=== PATIENT | female | born 1970 ===

== ENCOUNTER 2017-01-30 09:02 | Emergency (ER) | payer BC ==
[2017-01-30 09:11] VITALS: BP 132/84; PULSE 98; TEMP 100; O2SAT 96
[2017-01-30 09:12] VITALS: BMI 34.9
[2017-01-30] MEDS ORDERED: Sodium Chloride 0.9% 1,000 ML IV STA (09:43)
--- NOTE | 2017-01-30 10:08 | ED PDOC ---
HPI: General Adult Time Seen by Provider: 01/30/17 09:25 Chief Complaint (Nursing): Female Genitourinary Chief Complaint (Provider): Female Genitourinary History Per: Patient History/Exam Limitations: no limitations Onset/Duration Of Symptoms: Days (x 2) Current Symptoms Are (Timing): Still Present Additional Complaint(s): Adelia is a 47 year old female who presents to the Emergency Department complaining of burning in her private area and right lower quadrant pain. Patient states she was here last week for sore throat and fever and was given antibiotics. She states that her sore throat has resolved, but still has burning in her private area. She states she was recently at the clinic, but did not check out her but gave her Flagyl. Currently taking Macrobid for UTI, Motrin , and other medication. Denies vaginal discharge, vaginal bleeding, States burning sensation and fever continues. PMD: No Provider Past Medical History Reviewed: Historical Data, Nursing Documentation, Vital Signs Vital Signs: Last Vital Signs Temp 100 F H 01/30/17 09:11 Pulse 98 H 01/30/17 09:11 Resp BP 132/84 01/30/17 09:11 Pulse Ox 96 01/30/17 15:34 - Medical History PMH: Diabetes (borderline) - Surgical History Surgical History: No Surg Hx - Family History Family History: States: Unknown Family Hx - Social History Current smoker - smoking cessation education provided: No Drugs: Denies - Home Medications Home Medications: Ambulatory Orders Medication Instructions Recorded Lactulose 10 gm PO TID 4 Days ml 08/22/14 Ibuprofen [Motrin Tab] 800 mg PO Q6 PRN #30 tab 01/23/17 Miconazole Nitrate [Monistat 3] 1 each VG DAILY #1 kit 01/30/17 - Allergies Allergies/Adverse Reactions: Allergies Allergy/AdvReac Type Severity Reaction Status Date / Time No Known Allergies Allergy Verified 08/22/14 00:59 Review of Systems ROS Statement: Except As Marked, All Systems Reviewed And Found Negative Constitutional: Positive for: Fever Gastrointestinal: Positive for: Abdominal Pain (Right Lower Quadrant) Genitourinary Female: Positive for: Pelvic Pain (Burning). Negative for: Vaginal Discharge, Vaginal Bleeding Physical Exam - Reviewed Nursing Documentation Reviewed: Yes Vital Signs Reviewed: Yes - Physical Exam Appears: Positive for: Non-toxic. Negative for: No Acute Distress Head Exam: Positive for: ATRAUMATIC, NORMAL INSPECTION, NORMOCEPHALIC Skin: Positive for: Normal Color, Warm, Dry Eye Exam: Positive for: Normal appearance Cardiovascular/Chest: Positive for: Regular Rate, Rhythm Respiratory: Positive for: Normal Breath Sounds. Negative for: Respiratory Distress Gastrointestinal/Abdominal: Positive for: Bowel Sounds, Soft, Tenderness (Mild Right Lower Quadrant). Negative for: Guarding, Rebound Back: Positive for: Normal Inspection Neurologic/Psych: Positive for: Alert, Oriented - Laboratory Results Result Diagrams: 01/30/17 10:23 01/30/17 10:23 - ECG O2 Sat by Pulse Oximetry: 96 (RA) Pulse Ox Interpretation: Normal Medical Decision Making Medical Decision Making: Time: 09:41 Initial Impression: Fever and Abdominal Pain Initial Plan: - CT Abdominal and Pelvis with IV Contrast - CMP - CBC - Chlamydia/GC RNA, TMA - Sodium Chloride 0.9% 1,000 ml IV 1,000 mls/hr - Blood Culture - Urine Culture - Influenza A B - Urinalysis Time: 10:13 Pelvic Exam - Thick white discharge in vault (vaginal in vault), no lesions, no CMT, no bleeding Time: 12:37 - Pelvis/Transvaginal Ultrasound Time: 12:24 CT Abdominal and Pelvis FINDINGS: LOWER THORAX: Unremarkable. LIVER: S Hepatic steatosis. No focal masses. No intrahepatic bile duct dilatation or perihepatic ascites. GALLBLADDER AND BILE DUCTS: Cholelithiasis without CT evidence of acute cholecystitis. PANCREAS: Unremarkable. No gross lesion or ductal dilatation. SPLEEN: Unremarkable. ADRENALS: Unremarkable. No mass. KIDNEYS AND URETERS: Unremarkable. No hydronephrosis. No solid mass. VASCULATURE: Unremarkable. No aortic aneurysm. BOWEL: Unremarkable. No obstruction. No gross mural thickening. APPENDIX: Normal appendix. PERITONEUM: Unremarkable. No free fluid. No free air. LYMPH NODES: Unremarkable. No enlarged lymph nodes. BLADDER: Unremarkable. REPRODUCTIVE: Unremarkable. BONES: No acute fracture. OTHER FINDINGS: None. IMPRESSION: No acute findings related to/accounting for the clinical presentation. No significant interval change compared to the prior examination(s). Time: 14:34 Pelvis Ultrasound FINDINGS: UTERUS: Measures 11.6 x 4.1 x 5.3 cm. Uterus is enlarged and anteverted with a bulbous appearing upper and mid fundus identified. The uterine myometrium is heterogeneous in overall echotexture and echogenicity however, no fibroid or other mass lesion is appreciable. ENDOMETRIUM: Measures 3.0 mm in diameter. Unremarkable. CERVIX: No cervical abnormality identified. RIGHT OVARY: Measures 2.1 x 1.7 x 1.9 cm. No solid mass. Normal flow. LEFT OVARY: Measures 2.7 x 1.7 x 3.1 cm. No solid mass. Normal flow. A simple avascular cyst identified in the left ovary measuring 2.0 x 1.2 x 2.2 cm. FREE FLUID: No significant free fluid noted. OTHER FINDINGS: None. IMPRESSION: 1. 2.2 cm simple cyst left ovary. Left adnexal compartment otherwise unremarkable. Unremarkable right adnexal compartment. 2. Enlarged, bulbous appearing uterus is identified however no focal mass is appreciable including the endometrium. No cervical pathology grossly evident. Scribe Attestation: Documented by Tahir Asher, acting as a scribe for Shante Morocho MD Provider Scribe Attestation: All medical record entries made by the Scribe were at my direction and personally dictated by me. I have reviewed the chart and agree that the record accurately reflects my personal performance of the history, physical exam, medical decision making, and the department course for this patient. I have also personally directed, reviewed, and agree with the discharge instructions and disposition. Disposition - Clinical Impression Clinical Impression: Vaginitis - Disposition Disposition: Routine/Home Disposition Time: 14:56 Condition: STABLE Additional Instructions: FOLLOW-UP WITH [facility] FOR REEVALUATION. Prescriptions: Miconazole Nitrate [Monistat 3] 1 each VG DAILY #1 kit Instructions: Vaginitis (ED) Forms: [employer] (Greek) Print Language: SURINAMESE
[2017-01-30 10:26] LABS: BASO % 0.3 % (0.0-2.0); EOS # 0.6 K/uL (0.0-0.7); EOS % 5.7 % (0.0-4.0); HEMATOCRIT 37.9 % (34.0-47.0); LYMPH # 0.7 K/uL (1.0-4.3); LYMPH % 6.7 % (20.0-40.0); MEAN CELL VOLUME 86.7 fl (81.0-99.0); MEAN CORPUSCULAR HEMOGLOBIN 29.3 pg (27.0-31.0); MEAN CORPUSCULAR HGB CONC 33.8 g/dL (33.0-37.0); MEAN PLATELET VOLUME 8.4 fl (7.2-11.7); MONO # 0.5 K/uL (0.0-0.8); MONO % 4.3 % (0.0-10.0); NEUT # 8.8 K/uL (1.8-7.0); PLATELET COUNT 296 K/uL (130-400); RED CELL DISTRIBUTION WIDTH 14.4 % (11.5-14.5); WHITE BLOOD COUNT 10.6 K/uL (4.8-10.8)
[2017-01-30 10:41] LABS: ALKALINE PHOSPHATASE 146 U/L (38-126); ALT/SGPT 45 U/L (9-52); AST/SGOT 45 U/L (14-36); BILIRUBIN,TOTAL 0.4 mg/dl (0.2-1.3); BLOOD UREA NITROGEN 9 mg/dl (7-17); CALCIUM 8.8 mg/dL (8.4-10.2); CARBON DIOXIDE 24 mmol/L (22-30); CHLORIDE 105 mmol/L (98-107); GFR AFRICAN-AMERICAN > 60; GLUCOSE,RANDOM 103 mg/dL (65-105); POTASSIUM 3.2 MMOL/L (3.6-5.0); SODIUM 138 mmol/l (132-148); TOTAL PROTEIN 7.7 G/DL (6.3-8.2)
[2017-01-30 10:42] LABS: RBC URINE 4 /hpf (0-3); URINE BILIRUBIN NEGATIVE (NEGATIVE); URINE BLOOD MODERATE (NEGATIVE); URINE COLOR YELLOW (YELLOW); URINE GLUCOSE (UA) NEG (Normal); URINE KETONE NEGATIVE (NEGATIVE); URINE LEUKOCYTE ESTERASE MOD Leu/uL (Negative); URINE PROTEIN NEGATIVE (NEGATIVE); URINE UROBILINOGEN 0.2-1.0 mg/dL (0.2-1.0); WBC URINE 6 /hpf (0-5)
[2017-01-30] MEDS ORDERED: Iohexol 300 100 ML IJ ONE (11:04)
[2017-01-30] MEDS ORDERED: Sodium Chloride 0.9% 50 ML IV ONE (11:04)
[2017-01-30 12:20] LABS: EOSINOPHIL 1 % (0-7); NEUTROPHIL 85 % (42-75); TOTAL CELLS COUNTED 100
--- NOTE | 2017-01-30 12:26 | CT ---
PROCEDURE: CT Abdomen and Pelvis with contrast HISTORY: RLQ pain COMPARISON: 08/22/2014. TECHNIQUE: Contrast dose: 95 cc Omnipaque 300 Radiation dose: Total exam DLP = 1089.44 mGy-cm. This CT exam was performed using one or more of the following dose reduction techniques: Automated exposure control, adjustment of the mA and/or kV according to patient size, and/or use of iterative reconstruction technique. FINDINGS: LOWER THORAX: Unremarkable. LIVER: S Hepatic steatosis. No focal masses. No intrahepatic bile duct dilatation or perihepatic ascites. GALLBLADDER AND BILE DUCTS: Cholelithiasis without CT evidence of acute cholecystitis. PANCREAS: Unremarkable. No gross lesion or ductal dilatation. SPLEEN: Unremarkable. ADRENALS: Unremarkable. No mass. KIDNEYS AND URETERS: Unremarkable. No hydronephrosis. No solid mass. VASCULATURE: Unremarkable. No aortic aneurysm. BOWEL: Unremarkable. No obstruction. No gross mural thickening. APPENDIX: Normal appendix. PERITONEUM: Unremarkable. No free fluid. No free air. LYMPH NODES: Unremarkable. No enlarged lymph nodes. BLADDER: Unremarkable. REPRODUCTIVE: Unremarkable. BONES: No acute fracture. OTHER FINDINGS: None. IMPRESSION: No acute findings related to/accounting for the clinical presentation. No significant interval change compared to the prior examination(s).
[2017-01-30] MEDS ORDERED: Potassium Chloride 20 mEq ER Tab PO STA (12:33)
[2017-01-30] MEDS ORDERED: Potassium Chloride 20 mEq ER Tab PO ONE (14:18)
--- NOTE | 2017-01-30 14:35 | US ---
HISTORY: RLQ pain COMPARISON: Unenhanced abdomen pelvis CT examination 01/30/2017. TECHNIQUE: Transabdominal ultrasound pelvis was performed utilizing longitudinal and transverse projections as requested. FINDINGS: UTERUS: Measures 11.6 x 4.1 x 5.3 cm. Uterus is enlarged and anteverted with a bulbous appearing upper and mid fundus identified. The uterine myometrium is heterogeneous in overall echotexture and echogenicity however, no fibroid or other mass lesion is appreciable. ENDOMETRIUM: Measures 3.0 mm in diameter. Unremarkable. CERVIX: No cervical abnormality identified. RIGHT OVARY: Measures 2.1 x 1.7 x 1.9 cm. No solid mass. Normal flow. LEFT OVARY: Measures 2.7 x 1.7 x 3.1 cm. No solid mass. Normal flow. A simple avascular cyst identified in the left ovary measuring 2.0 x 1.2 x 2.2 cm. FREE FLUID: No significant free fluid noted. OTHER FINDINGS: None. IMPRESSION: 1. 2.2 cm simple cyst left ovary. Left adnexal compartment otherwise unremarkable. Unremarkable right adnexal compartment. 2. Enlarged, bulbous appearing uterus is identified however no focal mass is appreciable including the endometrium. No cervical pathology grossly evident.
== END 2017-01-30 15:20 | disposition home or self-care (01) ==
LOC: H.ER 09:02
DX: N76.0 Acute vaginitis (principal); N83.292 Other ovarian cyst, left side
CPT/HCPCS: 74177; 76856; 80053; 81003; 81025; 85025; 87040; 87086; 87491; 87591; 87804; 99283; J7040; Q9967